=== PATIENT | male | born 1975 | race Caucasian/White ===

== ENCOUNTER 2016-08-14 09:11 | Outpatient (CLI) | payer MEDICARE, OTHER ==
[2016-08-14 10:12] LABS: eGFR (African) > 60; eGFR (Non-African) > 60
== END 2016-08-14 09:12 ==
LOC: LAB 09:11
PROVIDERS: ATTEND Family Medicine
DX: I10 Essential (primary) hypertension (principal); R63.5 Abnormal weight gain
CPT/HCPCS: 36415; 80048; 84443

== ENCOUNTER 2017-02-15 10:42 | Outpatient (CLI) | payer MEDICARE, OTHER ==
[2017-02-15 10:58] LABS: BASOPHILS % 0.5 (0.0-1.5); EOSINOPHILS % 2.5 % (0.0-6.8); MEAN CORPUSCULAR HEMOGLOBIN 31.1 pg (28.0-34.0); MEAN CORPUSCULAR VOLUME 91.2 fl (80.0-100.0); MONOCYTES % 4.8 % (0.0-11.0); NEUTROPHILS # 6.4 # k/uL (1.4-7.7)
[2017-02-15 11:30] LABS: eGFR (African) > 60; eGFR (Non-African) > 60
== END 2017-02-15 11:00 ==
LOC: LAB 10:42
PROVIDERS: ATTEND Family Medicine
DX: E78.5 Hyperlipidemia, unspecified (principal); I10 Essential (primary) hypertension
CPT/HCPCS: 36415; 80053; 80061; 85025

== ENCOUNTER 2017-08-18 10:00 | Outpatient (CLI) | payer MEDICARE, OTHER ==
[2017-08-18 11:01] LABS: eGFR (African) > 60; eGFR (Non-African) > 60
== END 2017-08-18 10:02 ==
LOC: LAB 10:00
PROVIDERS: ATTEND Family Medicine
DX: I10 Essential (primary) hypertension (principal)
CPT/HCPCS: 36415; 80053

== ENCOUNTER 2018-02-18 09:39 | Outpatient (CLI) | payer MEDICARE, OTHER ==
[2018-02-18 10:32] LABS: BASOPHILS % 0.5 (0.0-1.5); EOSINOPHILS % 2.1 % (0.0-6.8); MEAN CORPUSCULAR HEMOGLOBIN 29.6 pg (28.0-34.0); MONOCYTES % 4.8 % (0.0-11.0); NEUTROPHILS # 7.2 # k/uL (1.4-7.7)
[2018-02-18 11:00] LABS: eGFR (Non-African) > 60
== END 2018-02-18 09:45 ==
LOC: LAB 09:39
PROVIDERS: ATTEND Family Medicine
DX: I10 Essential (primary) hypertension (principal); E78.5 Hyperlipidemia, unspecified
CPT/HCPCS: 36415; 80053; 80061; 85025

== ENCOUNTER 2019-02-20 12:14 | Outpatient (CLI) | payer MEDICARE, OTHER ==
[2018-06-26 05:03] VITALS: BP 144/64
[2019-02-20 12:31] LABS: HDL 39 mg/dL (>40); eGFR (Non-African) > 60
[2019-02-20 14:41] LABS: BASOPHILS % 0.5 % (0.0-1.5); NEUTROPHILS # 5.8 # k/uL (1.4-7.7)
== END 2019-02-20 12:19 ==
LOC: LABRHC 12:14
PROVIDERS: ATTEND Family Medicine
DX: I10 Essential (primary) hypertension (principal); E78.5 Hyperlipidemia, unspecified
CPT/HCPCS: 80053; 80061; 85025